=== PATIENT | male | born 1990 | race Caucasian/White ===

== ENCOUNTER → 2019-03-27 09:49 | Outpatient (CLI) | payer OTHER, SELFPAY ==
--- NOTE | 2019-03-27 10:01 | XR_ITS ---
PROCEDURE: XR SHOULDER RT MIN 2V CLINICAL INDICATION: RT SHOULDER INJURY,PAIN COMPARISON: No exams were available for comparison FINDINGS: There is mild prominence of the acromioclavicular joint space. Has the patient had shoulder surgery?. The AC joint does not appear displaced. The glenohumeral joint has an unremarkable appearance. No fracture or dislocation. No subacromial stenosis. IMPRESSION: Mild prominence of the AC joint space otherwise negative Dictated by: Bartolome Paniagua MD 03/27/2019 12:33 Electronically signed by Bartolome Paniagua MD in [place] 03/27/2019 12:33
== END ==
PROVIDERS: PCP Internal Medicine; Visit Provider Internal Medicine
DX: M25.511 Pain in right shoulder (principal)
CPT/HCPCS: 73030